=== PATIENT | male | born 1990 | race Two or more races ===

== ENCOUNTER 2019-10-13 21:00 | Emergency (ER) | payer MEDICAID ==
[2019-10-13] MEDS ORDERED: Ondansetron 4 MG/2 ML SDV IVPUSH ONE (21:21)
[2019-10-13] MEDS ORDERED: Sodium Chloride 0.9% 10 ML Syringe FLUSH PRN (21:21)
[2019-10-13] MEDS ORDERED: Sodium Chloride 0.9% 2.5 ML Syringe FLUSH PRN ×2 (21:21)
[2019-10-13] MEDS ORDERED: Famotidine 20 MG/2 ML SDV IVPUSH ONE (21:21)
[2019-10-13] MEDS ORDERED: Sodium Chloride 0.9% 1,000 ML IV ONE ×2 (21:21→22:33)
--- NOTE | 2019-10-13 21:24 | EDM.PDOC ---
ED HPI GENERAL MEDICAL PROBLEM - General Chief Complaint: Abdominal Pain Stated Complaint: ABDOMINAL PAIN Time Seen by Provider: 10/13/19 21:06 - History of Present Illness INITIAL COMMENTS - FREE TEXT/NARRATIVE: History of present illness: Patient presents with upper abdominal pain that is been going on for a month and a half he states that he has burning type pain in his epigastrium does not radiate anywhere he has had nausea and vomiting with some dark blood in it he has had some dark stools as well he states that he has been taking aspirin for the past 6 weeks because his ankle hurts he normally is on gabapentin for ch ronic ankle pain after having multiple ankle fractures the last of which was 2 months ago. He denies any other NSAIDs he denies any diarrhea he does not have any other medical problems no prior abdominal surgeries nothing seems to make this better Review of systems: As per history of present illness and below otherwise all systems reviewed and negative. Past medical history: As per history of present illness and as reviewed below otherwise noncontributory. Surgical history: As per history of present illness and as reviewed below otherwise noncontributory. Social history: No reported history of drug or alcohol abuse. Family history: As per history of present illness and as reviewed below otherwise noncontributory. Physical exam: HEENT: Atraumatic, normocephalic, pupils reactive, negative for conjunctival pallor or scleral icterus, mucous membranes moist, throat clear, neck supple, nontender, trachea midline. Lungs: Clear to auscultation, breath sounds equal bilaterally, chest nontender. Heart: S1S2, regular, negative for clicks, rubs, or JVD. Tachycardia in the 130s Abdomen: Soft, nondistended, there is epigastric tenderness without rebound or guarding. Negative for masses or hepatosplenomegaly. Negative for costovertebral tenderness. There is no tenderness at McBurney's point Pelvis: Stable nontender. Genitourinary: Deferred. Rectal: Deferred. Extremities: Atraumatic, negative for cords or calf pain. Neurovascular unremarkable. Neuro: Awake, alert, oriented. Cranial nerves II through XII unremarkable. Cerebellum unremarkable. Motor and sensory unremarkable throughout. Exam nonfocal. Diagnostics: [] Therapeutics: [] Impression: Abdominal pain [] Plan: We will give the patient Pepcid and Zofran for stomach a fluid bolus for his tachycardia and check labs and reassess. [] Definitive disposition and diagnosis as appropriate pending reevaluation and review of above. abdominal Pain Score (Numeric/FACES): 10 - Related Data Allergies Allergy/AdvReac Type Severity Reaction Status Date / Time amoxicillin Allergy Anaphylactic Verified 10/13/19 21:07 Shock ibuprofen Allergy Hives Verified 10/13/19 21:07 Home Meds: Home Meds Famotidine [Pepcid] 20 mg PO BEDTIME 30 Days #30 tab 10/13/19 [Rx] Gabapentin [Neurontin] 300 mg PO BID 10/13/19 [History] Gabapentin [Neurontin] 300 mg PO TID #90 cap 10/13/19 [Rx] Ondansetron [Zofran ODT] 4 mg PO Q6H PRN 5 Days #12 tab.dis 10/13/19 [Rx] Past Medical History HEENT History: Reports: None Cardiovascular History: Reports: None Respiratory History: Reports: None Gastrointestinal History: Reports: None Genitourinary History: Reports: None Neurological History: Reports: None Psychiatric History: Reports: None Endocrine/Metabolic History: Reports: None Hematologic History: Reports: None Immunologic History: Reports: None Oncologic (Cancer) History: Reports: None Dermatologic History: Reports: None - Infectious Disease History Infectious Disease History: Reports: Hepatitis C - Past Surgical History Head Surgeries/Procedures: Reports: None Other Musculoskeletal Surgeries/Procedures:: right ankle surgery june 2019 Social & Family History - Family History Family Medical History: Noncontributory - Tobacco Use Smoking Status *Q: Current Every Day Smoker Years of Tobacco use: 1 Packs/Tins Daily: 5 - Recreational Drug Use Recreational Drug Use: No ED ROS GENERAL - Review of Systems Review Of Systems: See Below ED EXAM, GENERAL - Physical Exam Exam: See Below Course - Vital Signs Text/Narrative:: Patient is better after medications he has an improved heart rate after a couple liters of saline abdomen is reexamined at 11:45 PM soft without rebound he will be going home on Pepcid gabapentin for his ankle and Zofran for his nausea and vomiting he is encouraged to follow-up with primary care. Last Recorded V/S: Last Vital Signs Temp 36.0 C L 10/13/19 23:49 Pulse 90 10/13/19 23:49 Resp 18 10/13/19 23:49 BP 134/83 10/13/19 23:49 Pulse Ox 98 10/13/19 23:49 - Orders/Labs/Meds Orders: Active Orders 24 hr Category Date Time Status Sodium Chloride 0.9% [Saline Flush] Med 10/13/19 21:21 Active 10 ml FLUSH ASDIRECTED PRN Sodium Chloride 0.9% [Saline Flush] Med 10/13/19 21:21 Active 2.5 ml FLUSH ASDIRECTED PRN Sodium Chloride 0.9% [Saline Flush] Med 10/13/19 21:21 Active 2.5 ml FLUSH ASDIRECTED PRN Saline Lock Insert [OM.PC] Stat Oth 10/13/19 21:21 Ordered Medication Orders Sodium Chloride (Saline Flush) 2.5 ml FLUSH ASDIRECTED PRN PRN Reason: Keep Vein Open Sodium Chloride (Saline Flush) 10 ml FLUSH ASDIRECTED PRN PRN Reason: Keep Vein Open Sodium Chloride (Saline Flush) 2.5 ml FLUSH ASDIRECTED PRN PRN Reason: Keep Vein Open Labs: Laboratory Tests 10/13/19 10/13/19 Range/Units 21:42 21:57 WBC 7.66 (4.0-11.0) K/uL RBC 4.58 (4.50-5.90) M/uL Hgb 14.4 (13.0-17.0) g/dL Hct 42.3 (38.0-50.0) % MCV 92.4 (80.0-98.0) fL MCH 31.4 (27.0-32.0) pg MCHC 34.0 (31.0-37.0) g/dL RDW Std Deviation 44.1 (28.0-62.0) fl RDW Coeff of Felipe 13 (11.0-15.0) % Plt Count 225 (150-400) K/uL MPV 9.60 (7.40-12.00) fL Neut % (Auto) 54.2 (48.0-80.0) % Lymph % (Auto) 33.9 (16.0-40.0) % [place] % (Auto) 8.9 (0.0-15.0) % Eos % (Auto) 2.6 (0.0-7.0) % Baso % (Auto) 0.4 (0.0-1.5) % Neut # (Auto) 4.2 (1.4-5.7) K/uL Lymph # (Auto) 2.6 H (0.6-2.4) K/uL [place] # (Auto) 0.7 (0.0-0.8) K/uL Eos # (Auto) 0.2 (0.0-0.7) K/uL Baso # (Auto) 0.0 (0.0-0.1) K/uL Nucleated RBC % 0.0 /100WBC Nucleated RBCs # 0 K/uL Sodium 140 (136-148) mmol/L Potassium 3.9 (3.5-5.1) mmol/L Chloride 103 (98-107) mmol/L Carbon Dioxide 20.7 L (21.0-32.0) mmol/L BUN 15 (7.0-18.0) mg/dL Creatinine 0.9 (0.8-1.3) mg/dL Est Cr Clr Drug Dosing 128.43 mL/min Estimated GFR (MDRD) > 60.0 ml/min Glucose 94 (74-106) mg/dL Calcium 8.4 L (8.5-10.1) mg/dL Total Bilirubin 1.7 H (0.2-1.0) mg/dL AST 78 H (15-37) IU/L ALT 103 H (14-63) IU/L Alkaline Phosphatase 59 (46-116) U/L Total Protein 8.2 (6.4-8.2) g/dL Albumin 4.4 (3.4-5.0) g/dL Globulin 3.8 (2.6-4.0) g/dL Albumin/Globulin Ratio 1.2 (0.9-1.6) Lipase 67 L (73-393) U/L Meds: Medications Generic Name Dose Route Start Last Admin Trade Name Freq PRN Reason Stop Dose Admin Sodium Chloride 2.5 ml 10/13/19 21:21 Saline Flush FLUSH ASDIRECTED PRN Keep Vein Open Sodium Chloride 10 ml 10/13/19 21:21 Saline Flush FLUSH ASDIRECTED PRN Keep Vein Open Sodium Chloride 2.5 ml 10/13/19 21:21 Saline Flush FLUSH ASDIRECTED PRN Keep Vein Open Discontinued Medications Generic Name Dose Route Start Last Admin Trade Name Freq PRN Reason Stop Dose Admin Acetaminophen 1,000 mg 10/13/19 21:55 10/13/19 22:22 Tylenol Extra Strength PO 10/13/19 21:56 Not Given ONETIME ONE Famotidine 20 mg 10/13/19 21:21 10/13/19 21:45 Pepcid IVPUSH 10/13/19 21:22 20 mg ONETIME ONE Administration Sodium Chloride 1,000 mls @ 999 mls/hr 10/13/19 21:21 10/13/19 21:45 Normal Saline IV 10/13/19 22:21 999 mls/hr BOLUS ONE Administration Sodium Chloride 1,000 mls @ 999 mls/hr 10/13/19 22:33 10/13/19 22:41 Normal Saline IV 10/13/19 23:33 999 mls/hr .Bolus ONE Administration Ondansetron HCl 4 mg 10/13/19 21:21 10/13/19 21:46 Zofran IVPUSH 10/13/19 21:22 4 mg ONETIME ONE Administration Departure - Departure Time of Disposition: 23:51 Disposition: Home, Self-Care 01 Condition: Good Clinical Impression: Abdominal pain - Discharge Information *PRESCRIPTION DRUG MONITORING PROGRAM REVIEWED*: Not Applicable *COPY OF PRESCRIPTION DRUG MONITORING REPORT IN PATIENT PHYLICIA: Not Applicable Prescriptions: Gabapentin [Neurontin] 300 mg PO TID #90 cap Famotidine [Pepcid] 20 mg PO BEDTIME 30 Days #30 tab Ondansetron [Zofran ODT] 4 mg PO Q6H PRN 5 Days #12 tab.dis PRN Reason: Nausea/Vomiting Instructions: Abdominal Pain, Adult, [id number] Referrals: PCP,None [Ordering Only Provider] - Forms: ED Department Discharge Additional Instructions: The following information is given to patients seen in the emergency department who are being discharged to home. This information is to outline your options for follow-up care. We provide all patients seen in our emergency department with a follow-up referral. The need for follow-up, as well as the timing and circumstances, are variable depending upon the specifics of your emergency department visit. If you don't have a primary care physician on staff, we will provide you with a referral. We always advise you to contact your personal physician following an emergency department visit to inform them of the circumstance of the visit and for follow-up with them and/or the need for any referrals to a consulting specialist. The emergency department will also refer you to a specialist when appropriate. This referral assures that you have the opportunity for follow-up care with a specialist. All of these measure are taken in an effort to provide you with optimal care, which includes your follow-up. Under all circumstances we always encourage you to contact your private physician who remains a resource for coordinating your care. When calling for follow-up care, please make the office aware that this follow-up is from your recent emergency room visit. If for any reason you are refused follow-up, please contact the [facility] Emergency Department at and asked to speak to the emergency department charge nurse. [facility] [address] [place] [address] [id number] [address] [address] Sepsis Event Note (ED) - Evaluation Sepsis Screening Result: No Definite Risk - Focused Exam Vital Signs: Vital Signs Temp Pulse Resp BP Pulse Ox 10/13/19 23:49 36.0 C L 90 18 134/83 98 10/13/19 22:42 111 H 16 147/89 H 96 10/13/19 22:23 105 H 14 140/87 96 10/13/19 21:10 36.4 C 133 H 18 157/104 H 95 - My Orders Last 24 Hours: My Active Orders 10/13/19 21:21 Sodium Chloride 0.9% [Saline Flush] 10 ml FLUSH ASDIRECTED PRN Sodium Chloride 0.9% [Saline Flush] 2.5 ml FLUSH ASDIRECTED PRN Sodium Chloride 0.9% [Saline Flush] 2.5 ml FLUSH ASDIRECTED PRN Saline Lock Insert [OM.PC] Stat - Assessment/Plan Last 24 Hours: My Active Orders 10/13/19 21:21 Sodium Chloride 0.9% [Saline Flush] 10 ml FLUSH ASDIRECTED PRN Sodium Chloride 0.9% [Saline Flush] 2.5 ml FLUSH ASDIRECTED PRN Sodium Chloride 0.9% [Saline Flush] 2.5 ml FLUSH ASDIRECTED PRN Saline Lock Insert [OM.PC] Stat
[2019-10-13] MEDS ORDERED: Acetaminophen 500 MG Tab PO ONE (21:55)
[2019-10-13 22:15] LABS: BLOOD UREA NITROGEN,BUN 15 mg/dL (7.0-18.0); CARBON DIOXIDE,CO2 20.7 mmol/L (21.0-32.0); CHLORIDE,CL 103 mmol/L (98-107); GLUCOSE RANDOM 94 mg/dL (74-106); LIPASE 67 U/L (73-393); POTASSIUM,K 3.9 mmol/L (3.5-5.1); SODIUM,NA 140 mmol/L (136-148)
== END 2019-10-13 23:58 | disposition home or self-care (01) ==
LOC: MW.ED 21:00
DX: R10.13 Epigastric pain (principal); R11.2 Nausea with vomiting, unspecified; F17.210 Nicotine dependence, cigarettes, uncomplicated; Z88.1 Allergy status to other antibiotic agents; Z88.6 Allergy status to analgesic agent; Z79.899 Other long term (current) drug therapy
CPT/HCPCS: 36415; 80053; 83690; 85025; 96361; 96374; 96375; 99284; J2405; J7030; S0028; 99283; J3490

== ENCOUNTER 2019-10-15 13:38 | Emergency (ER) | payer MEDICAID ==
[2019-10-15] MEDS ORDERED: Sodium Chloride 0.9% 2.5 ML Syringe FLUSH PRN (13:51)
[2019-10-15] MEDS ORDERED: Lactated Ringers 1,000 ML IV ONE (13:51)
[2019-10-15] MEDS ORDERED: Alum Hydrox/Mag Hydrox/Simeth 15 ML, Lidocaine 2% 5 ML PO ONE ×2 (13:51)
[2019-10-15] MEDS ORDERED: Ondansetron 4 MG/2 ML SDV IVPUSH ONE (13:51)
[2019-10-15] MEDS ORDERED: Sodium Chloride 0.9% 10 ML Syringe FLUSH PRN (13:51)
--- NOTE | 2019-10-15 14:16 | EDM.PDOC ---
ED HPI GENERAL MEDICAL PROBLEM - General Chief Complaint: Abdominal Pain Stated Complaint: ABDOMINAL PAIN Time Seen by Provider: 10/15/19 13:46 Source of Information: Reports: Patient History Limitations: Reports: No Limitations - History of Present Illness INITIAL COMMENTS - FREE TEXT/NARRATIVE: 28-year-old male returns for upper abdominal pain. He recently got out of shelter 5 days ago after being incarcerated for 8 months after moving here from [facility], he notes abdominal pain localized to the upper abdomen for 1 month. He has been drinking alcohol every day since he he got out of shelter 5 days ago. He notes 4 episodes of vomiting with dark red blood in his vomitus, and dark red blood upon defecating. He admits to subjective fevers and chills. He denies taking ibuprofen. He was seen here 2 days ago for abdominal pain and was discharged with prescription medication of Pepcid but he has no money and did not fill his medications. ROS: A 10-point review of systems, other than pertinent positives and negatives as stated per HPI, is otherwise negative Past medical history: No additional pertinent history Past Surgical history: No additional pertinent history Social history: No additional pertinent history Family history: No additional pertinent history PHYSICAL EXAM General: AOx4, GCS = 15, mild distress HEENT: dry mucous membrane Neck: supple, no meningismus, no Kernig or Brudzinski Cardiac: S1S2 tachycardia Respiratory: CTAB, no crackles or rales, no wheezing Abdomen: Soft, upper abd ttp, no rebound or guarding, nondistended, no pulsatile mass. Back: nontender Musculoskeletal: NVI distally, no deformity Neuro: No focal deficits. abdominal Pain Score (Numeric/FACES): 9 - Related Data Allergies Allergy/AdvReac Type Severity Reaction Status Date / Time amoxicillin Allergy Anaphylactic Verified 10/15/19 13:55 Shock ibuprofen Allergy Hives Verified 10/15/19 13:55 Home Meds: Home Meds Famotidine [Pepcid] 20 mg PO BEDTIME 30 Days #30 tab 07/21/20 [Rx] Gabapentin [Neurontin] 300 mg PO BID 10/13/19 [History] Gabapentin [Neurontin] 300 mg PO TID #90 cap 10/13/19 [Rx] Ondansetron [Zofran ODT] 4 mg PO Q6H PRN 5 Days #12 tab.dis 10/13/19 [Rx] Acetaminophen/oxyCODONE [Percocet 325-5 MG] 1 each PO Q6H #12 tab 10/15/19 [Rx] Pantoprazole Sodium [Protonix] 20 mg PO DAILY #30 tablet.dr 10/15/19 [Rx] Tamsulosin HCl [Flomax] 0.4 mg PO DAILY #12 cap.er.24h 10/15/19 [Rx] Past Medical History - Past Health History Medical/Surgical History: Denies Medical/Surgical History HEENT History: Reports: None Cardiovascular History: Reports: None Respiratory History: Reports: None Gastrointestinal History: Reports: None Genitourinary History: Reports: None Neurological History: Reports: None Psychiatric History: Reports: None Endocrine/Metabolic History: Reports: None Hematologic History: Reports: None Immunologic History: Reports: None Oncologic (Cancer) History: Reports: None Dermatologic History: Reports: None - Infectious Disease History Infectious Disease History: Reports: Hepatitis C - Past Surgical History Head Surgeries/Procedures: Reports: None Other Musculoskeletal Surgeries/Procedures:: right ankle surgery june 2019 Social & Family History - Family History Family Medical History: Noncontributory - Tobacco Use Smoking Status *Q: Current Every Day Smoker Years of Tobacco use: 10 Packs/Tins Daily: 0.5 - Alcohol Use Days Per Week of Alcohol Use: 7 Number of Drinks Per Day: 2 Total Drinks Per Week: 14 - Recreational Drug Use Recreational Drug Use: No ED ROS GENERAL - Review of Systems Review Of Systems: Comprehensive ROS is negative, except as noted in HPI. ED EXAM, GENERAL - Physical Exam Exam: See Below (see dictation) Course - Vital Signs Last Recorded V/S: Last Vital Signs Temp 96.4 F L 10/15/19 13:52 Pulse 122 H 10/15/19 15:52 Resp 17 10/15/19 13:52 BP 151/83 H 10/15/19 15:52 Pulse Ox 93 L 10/15/19 15:52 - Orders/Labs/Meds Orders: Active Orders 24 hr Category Date Time Status Sodium Chloride 0.9% [Saline Flush] Med 10/15/19 13:51 Active 10 ml FLUSH ASDIRECTED PRN Sodium Chloride 0.9% [Saline Flush] Med 10/15/19 13:51 Active 2.5 ml FLUSH ASDIRECTED PRN Saline Lock Insert [OM.PC] Stat Oth 10/15/19 13:51 Ordered Medication Orders Sodium Chloride (Saline Flush) 10 ml FLUSH ASDIRECTED PRN PRN Reason: Keep Vein Open Sodium Chloride (Saline Flush) 2.5 ml FLUSH ASDIRECTED PRN PRN Reason: Keep Vein Open Labs: Laboratory Tests 10/15/19 10/15/19 10/15/19 Range/Units 14:08 14:08 16:44 WBC 10.28 (4.0-11.0) K/uL RBC 4.65 (4.50-5.90) M/uL Hgb 14.8 (13.0-17.0) g/dL Hct 42.3 (38.0-50.0) % MCV 91.0 (80.0-98.0) fL MCH 31.8 (27.0-32.0) pg MCHC 35.0 (31.0-37.0) g/dL RDW Std Deviation 43.2 (28.0-62.0) fl RDW Coeff of Felipe 13 (11.0-15.0) % Plt Count 244 (150-400) K/uL MPV 9.30 (7.40-12.00) fL Neut % (Auto) 53.0 (48.0-80.0) % Lymph % (Auto) 39.1 (16.0-40.0) % [place] % (Auto) 6.8 (0.0-15.0) % Eos % (Auto) 0.8 (0.0-7.0) % Baso % (Auto) 0.3 (0.0-1.5) % Neut # (Auto) 5.5 (1.4-5.7) K/uL Lymph # (Auto) 4.0 H (0.6-2.4) K/uL [place] # (Auto) 0.7 (0.0-0.8) K/uL Eos # (Auto) 0.1 (0.0-0.7) K/uL Baso # (Auto) 0.0 (0.0-0.1) K/uL Nucleated RBC % 0.0 /100WBC Nucleated RBCs # 0 K/uL Sodium 140 (136-148) mmol/L Potassium 3.7 (3.5-5.1) mmol/L Chloride 104 (98-107) mmol/L Carbon Dioxide 21.6 (21.0-32.0) mmol/L BUN 19 H (7.0-18.0) mg/dL Creatinine 1.0 (0.8-1.3) mg/dL Est Cr Clr Drug Dosing 115.58 mL/min Estimated GFR (MDRD) > 60.0 ml/min Glucose 84 (74-106) mg/dL Calcium 7.8 L (8.5-10.1) mg/dL Total Bilirubin 1.6 H (0.2-1.0) mg/dL AST 84 H (15-37) IU/L ALT 116 H (14-63) IU/L Alkaline Phosphatase 59 (46-116) U/L Total Protein 7.8 (6.4-8.2) g/dL Albumin 4.2 (3.4-5.0) g/dL Globulin 3.6 (2.6-4.0) g/dL Albumin/Globulin Ratio 1.2 (0.9-1.6) Lipase 53 L (73-393) U/L Urine Color YELLOW Urine Appearance CLEAR Urine pH 6.0 (5.0-8.0) Ur Specific [place] 1.020 (1.001-1.035) Urine Protein NEGATIVE (NEGATIVE) mg/dL Urine Glucose (UA) NEGATIVE (NEGATIVE) mg/dL Urine Ketones NEGATIVE (NEGATIVE) mg/dL Urine Occult Blood TRACE-INTACT H (NEGATIVE) Urine Nitrite NEGATIVE (NEGATIVE) Urine Bilirubin NEGATIVE (NEGATIVE) Urine Urobilinogen 0.2 (<2.0) EU/dL Ur Leukocyte Esterase NEGATIVE (NEGATIVE) Urine RBC 0-1 (0-2/HPF) Urine WBC 0-1 (0-5/HPF) Ur Epithelial Cells RARE (NONE-FEW) Urine Bacteria RARE (NEGATIVE) Meds: Medications Generic Name Dose Route Start Last Admin Trade Name Freq PRN Reason Stop Dose Admin Sodium Chloride 10 ml 10/15/19 13:51 Saline Flush FLUSH ASDIRECTED PRN Keep Vein Open Sodium Chloride 2.5 ml 10/15/19 13:51 Saline Flush FLUSH ASDIRECTED PRN Keep Vein Open Discontinued Medications Generic Name Dose Route Start Last Admin Trade Name Francine PRN Reason Stop Dose Admin Al Hydroxide/Mg Hydroxide 15 0 ml 10/15/19 13:51 10/15/19 14:15 ml/ Lidocaine HCl 5 ml PO 10/15/19 13:52 1 each ONETIME ONE Administration Lactated Ringer's 1,000 mls @ 999 mls/hr 10/15/19 13:51 10/15/19 14:16 Ringers, Lactated IV 10/15/19 14:51 999 mls/hr .BOLUS ONE Administration Ondansetron HCl 4 mg 10/15/19 13:51 10/15/19 14:15 Zofran IVPUSH 10/15/19 13:52 4 mg ONETIME ONE Administration - Re-Assessments/Exams Free Text/Narrative Re-Assessment/Exam: 10/15/19 18:15 After treatments and a prolonged observation period in the ER, the patient improved clinically and is stable for discharge. I performed a repeat examination and the patient has not demonstrated any new abnormal findings. Patient exhibits normal vital signs and has exhibited a normal gait. I advised the patient to return to the ER for reevaluation if symptoms worsened, and to follow up with urology clinic and within 2-3 days. MEDICAL DECISION MAKING: I reviewed the patients past medical records, lab and radiographic findings. I discussed the case with the patient. My differential diagnosis included: UTI, GI bleed, cholelithiasis. Patient's urine did not reveal urinary tract infection. CT demonstrated 6 mm right ureteral stone. His pain is improved in the ED, amendable for outpatient follow-up with urology. I instructed him to fill his prescription from his previous ER visit, he was precribed zofran, pepcid, and gabapentin. Today his Hgb is stable for follow-up with GI for EGD/colonoscopy. I will prescribe him Prilosec for GI bleed complaint. Percocet and Flomax for right ureteral stone. Departure - Departure Time of Disposition: 18:16 Disposition: Home, Self-Care 01 Condition: Good Clinical Impression: Gastritis, Ureteral calculus, right, GI bleed, Abdominal pain - Discharge Information *PRESCRIPTION DRUG MONITORING PROGRAM REVIEWED*: Not Applicable *COPY OF PRESCRIPTION DRUG MONITORING REPORT IN PATIENT PHYLICIA: Not Applicable Prescriptions: Tamsulosin HCl [Flomax] 0.4 mg PO DAILY #12 cap.er.24h Acetaminophen/oxyCODONE [Percocet 325-5 MG] 1 each PO Q6H #12 tab Pantoprazole Sodium [Protonix] 20 mg PO DAILY #30 tablet.dr Instructions: Abdominal Pain, Adult, [id number], Gastritis, Adult, [id number] Referrals: PCP,Not In Area [Primary Care Provider] - Forms: ED Department Discharge Additional Instructions: The following information is given to patients seen in the emergency department who are being discharged to home. This information is to outline your options for follow-up care. We provide all patients seen in our emergency department with a follow-up referral. The need for follow-up, as well as the timing and circumstances, are variable depending upon the specifics of your emergency department visit. If you don't have a primary care physician on staff, we will provide you with a referral. We always advise you to contact your personal physician following an emergency department visit to inform them of the circumstance of the visit and for follow-up with them and/or the need for any referrals to a consulting specialist. The emergency department will also refer you to a specialist when appropriate. This referral assures that you have the opportunity for follow-up care with a specialist. All of these measure are taken in an effort to provide you with optimal care, which includes your follow-up. Under all circumstances we always encourage you to contact your private physician who remains a resource for coordinating your care. When calling for follow-up care, please make the office aware that this follow-up is from your recent emergency room visit. If for any reason you are refused follow-up, please contact the [facility] Emergency Department at and asked to speak to the emergency department charge nurse. [facility] - Urology [address] [place] [address] [facility] - Primary Care [address] [place] [id number] [facility] [address] [place] [id number] Sepsis Event Note (ED) - Evaluation Sepsis Screening Result: No Definite Risk - Focused Exam Vital Signs: Vital Signs Temp Pulse Resp BP Pulse Ox 10/15/19 15:52 122 H 151/83 H 93 L 10/15/19 13:52 96.4 F L 122 H 17 151/83 H 93 L - My Orders Last 24 Hours: My Active Orders 10/15/19 13:51 Sodium Chloride 0.9% [Saline Flush] 10 ml FLUSH ASDIRECTED PRN Sodium Chloride 0.9% [Saline Flush] 2.5 ml FLUSH ASDIRECTED PRN Saline Lock Insert [OM.PC] Stat - Assessment/Plan Last 24 Hours: My Active Orders 10/15/19 13:51 Sodium Chloride 0.9% [Saline Flush] 10 ml FLUSH ASDIRECTED PRN Sodium Chloride 0.9% [Saline Flush] 2.5 ml FLUSH ASDIRECTED PRN Saline Lock Insert [OM.PC] Stat
[2019-10-15 14:39] LABS: BLOOD UREA NITROGEN,BUN 19 mg/dL (7.0-18.0); CARBON DIOXIDE,CO2 21.6 mmol/L (21.0-32.0); CHLORIDE,CL 104 mmol/L (98-107); GLUCOSE RANDOM 84 mg/dL (74-106); LIPASE 53 U/L (73-393); POTASSIUM,K 3.7 mmol/L (3.5-5.1); SODIUM,NA 140 mmol/L (136-148)
--- NOTE | 2019-10-15 14:59 | US ---
Limited abdominal ultrasound: Multiple real-time images of the upper right abdomen were obtained. Comparison: No prior abdominal imaging is available. Aorta shows no aneurysm. Liver is slightly enlarged and echogenic, no discrete focal abnormality is seen. Right kidney shows no hydronephrosis or mass and has a length of 11.4 cm. Gallbladder shows no shadowing gallstones, gallbladder wall thickening or biliary duct dilatation. Pancreas is incompletely seen. Visualized portions of the pancreas shows no discrete abnormality. Inferior vena cava is patent. Impression: 1. Findings within the liver suspicious for fatty infiltration. 2. No additional abnormality is appreciated on right upper quadrant abdominal ultrasound. Diagnostic code #2 This report was dictated in MDT
--- NOTE | 2019-10-15 15:48 | CT ---
CT abdomen and pelvis Technique: Multiple axial sections were obtained from above the dome of the diaphragm inferiorly through the pubic symphysis. Intravenous contrast was utilized. No oral contrast has been given. Comparison: No prior CT abdomen or pelvis study, previous limited abdominal ultrasound performed earlier on the same day (2:06 PM). Visualized lung bases show nothing acute. Liver shows decreased density compatible with fatty infiltration. No focal abnormality is seen within the liver. Gallbladder contains no calcified gallstones. Spleen appears within normal limits. Adrenal glands show no nodule. Pancreas is within normal limits. Aorta shows no aneurysm. Kidneys show symmetric contrast enhancement. Small nonobstructing calculi are seen within the kidneys. Right ureter is mildly dilated. This finding is caused by an obstructing stone within the distal right ureter measuring 6 mm. This occurs off approximately 4-5 cm from the UVJ. No other ureteral calculi are seen. Kidneys show symmetric contrast enhancement. Aorta shows no aneurysm. No retroperitoneal adenopathy is seen. No pelvic mass or adenopathy is seen. No free fluid or inflammatory change is appreciated. Bone window settings were reviewed shows no acute osseous finding. Impression: 1. Mildly dilated right ureter which is caused by an obstructing stone within the distal right ureter measuring 6 mm. 2. Small nonobstructing calculi within both kidneys. 3. Fatty infiltration within the liver. 4. No other acute abnormality is appreciated on CT study of the abdomen and pelvis. Diagnostic code #3 This report was dictated in MDT
[2019-10-15] MEDS ORDERED: Iopamidol 755 Mg/ML 100 ML Bottle IVPUSH ONE (19:00)
== END 2019-10-15 18:34 | disposition home or self-care (01) ==
LOC: MW.ED 13:38
DX: K92.2 Gastrointestinal hemorrhage, unspecified (principal); N20.2 Calculus of kidney with calculus of ureter; F17.210 Nicotine dependence, cigarettes, uncomplicated; Z88.1 Allergy status to other antibiotic agents; Z88.6 Allergy status to analgesic agent; Z79.899 Other long term (current) drug therapy
CPT/HCPCS: 74177; 76705; 80053; 81001; 83690; 85025; 96361; 96374; 99284; A9270; J2405; J7120; Q9967; 99283